=== PATIENT | male | born 1975 | race Hispanic/Latino ===

== ENCOUNTER 2019-09-19 19:28 | Emergency (ER) | payer OTHER ==
[~2019-09-19] VITALS: Ht 167.6 cm; Wt 108.9 kg
--- NOTE | 2019-09-19 20:32 | Emergency Department Note ---
History of Present Illnes History of Present Illness Chief Complaint: COVID PUI History of Present Illness This is a 44 year old male with week long h/o of cough fever, and (+) COVID-19 test. Presents to the ED for increasing cp and dyspnea. Historian: Patient Arrival Mode: [employer] Required: No Onset (how long ago): week(s) (1) Radiation: Reports non-radiation Severity: moderate Onset quality: gradual Duration (how long): week(s) (1) Timing of current episode: constant Progression: worsening Relieving factors: none Exacerbating factors: none Associated symptoms: Reports chest pain, Reports fever/chills, Reports malaise, Reports weakness Treatments prior to arrival: none Past Medical/Family History Physician Review I have reviewed the patient's past medical and family history. Any updates have been documented here. Past Medical History Recent Fever: Yes Clinical Suspicion of Infectio: Yes New/Unexplained Change in Ment: No Past Medical History: Hypertension Past Surgical History: None Social History Smoking Cessation: Never Smoker Alcohol Use: Social Any Illegal Drug Use: No Review of Systems Review of Systems Constitutional: Reports no symptoms EENTM: Reports no symptoms Cardiovascular: Reports no symptoms Respiratory: Reports other (tachypnea) Gastrointestinal: Reports no symptoms Genitourinary: Reports no symptoms Musculoskeletal: Reports no symptoms Integumentary: Reports no symptoms Neurological: Reports no symptoms Psychological: Reports no symptoms Endocrine: Reports no symptoms Hematological/Lymphatic: Reports no symptoms Physical Exam Related Data Allergies: Coded Allergies: No Known Allergies (Unverified , 09/19/19) Physical Exam CONSTITUTIONAL Constitutional: Present morbidly obese HENT HENT: Present normocephalic, Present atraumatic, Present oropharynx clear/moist, Present nose normal HENT L/R: Present left ext ear normal, Present right ext ear normal EYES Eyes: Reports PERRL, Reports conjunctivae normal NECK Neck: Present ROM normal PULMONARY Pulmonary: Present effort normal, Present breath sounds normal CARDIOVASCULAR Cardiovascular: Present regular rhythm, Present heart sounds normal, Present capillary refill normal, Present normal rate GASTROINTESTINAL Abdominal: Present soft, Present nontender, Present bowel sounds normal GENITOURINARY Genitourinary: Present exam deferred SKIN Skin: Present warm, Present dry MUSCULOSKELETAL Musculoskeletal: Present ROM normal NEUROLOGICAL Neurological: Present alert, Present oriented x 3, Present no gross motor or sensory deficits PSYCHOLOGICAL Psychological: Present mood/affect normal, Present judgement normal, Present other (ANXIOUS) Results Laboratory Lab results reviewed: Yes Imaging Imaging results reviewed: Yes Impressions [place] [id number] Patient Name: RICHARD BARRETO MR #: [id number] : 1975 Age/Sex: 44/M Req #: [id number] Adm Physician: Ordered by: NAJMA CONDE DO Report #: [id number] Location: ER Room/Bed: Procedure: [id number] DX/CHEST SINGLE (PORTABLE) Exam Date: 09/19/19 Exam Time: 2199 REPORT STATUS: Signed EXAMINATION: CHEST SINGLE (PORTABLE) INDICATION: Covid, short of breath, fever COMPARISON: None FINDINGS: TUBES and LINES: None. LUNGS: Normal lung volumes. Central bronchial wall thickening. Subtle perihilar and infrahilar haziness. PLEURA: No pleural effusion or pneumothorax. HEART AND MEDIASTINUM: The cardiomediastinal silhouette is unremarkable. BONES AND SOFT TISSUES: No acute osseous lesion. Soft tissues are unremarkable. UPPER ABDOMEN: No free air under the diaphragm. IMPRESSION: Findings of bronchitis. Subtle perihilar and infrahilar haziness can be due to atelectasis or pneumonia. Signed by: Ruben Cobb DO on 09/19/2019 11:08 PM Dictated By: RUBEN COBB DO 07 Transcribed By: YANNI on 09/19/[id number] COPY TO: NAJMA CONDE DO~ Procedures 12 Lead ECG Interpretation ECG Interpretation : ECG: ECG [employer]: Interpreted by ED physician Date: Sep 19, 2019 Time: 20:50 Rhythm: sinus rhythm Rate: normal BPM: 65 QRS axis: normal ST segments normal: Yes T waves normal: Yes Clinical Impression: non-specific ECG Assessment & Plan Medical Decision Making MDM 44 yom with known h/o of COVID-19. patient placed on continuous pulse oximetry without desaturation event. Plan to discharge to home instructions with instructions to self quarantine . Rx albuteroll Assessment & Plan Final Impression: (1) COVID-19 Depart Disposition: HOME, SELF-CARE Last Vital Signs Date Time Temp Pulse Resp B/P (MAP) Pulse Ox O2 Delivery O2 Flow Rate FiO2 09/20/19 00:03 63 24 97 09/19/19 23:19 99.4 129/74 Medications in the ED Albuterol INH RQ4H PRN INH SHORTNESS OF BREATH; Start 09/19/19 at 20:45; Stop 09/20/19 at 00:17; Status DC Prednisone 60 mg ONCE STAT PO Last administered on 09/19/19at 21:26; Admin Dose 60 MG; Start 09/19/19 at 20:35; Stop 09/19/19 at 20:56; Status DC Sodium Chloride 1,000 ml @ 0 mls/hr Q0M STAT IV Last administered on 09/19/19at 21:26; Admin Dose 999 MLS/HR; Start 09/19/19 at 20:35; Stop 09/19/19 at 20:39; Status DC Acetaminophen 975 mg STK-MED ONCE .ROUTE ; Start 09/19/19 at 20:59; Stop 09/19/19 at 20:54; Status DC Acetaminophen 975 mg ONCE ONCE PO Last administered on 09/19/19at 21:20; Admin Dose 975 MG; Start 09/19/19 at 21:30; Stop 09/19/19 at 21:34; Status DC NAJMA CONDE DO Sep 19, 2019 20:32
[2019-09-19] MEDS ORDERED: SODIUM CHLORIDE 0.9% 1000ML 1,000 ML IV STA (20:35)
[2019-09-19] MEDS ORDERED: PREDNISONE 20 MG TAB PO STA (20:35)
[2019-09-19] MEDS ORDERED: ALBUTEROL SULFATE HFA 8GM INHALATION AEROSOL INH PRN (20:45)
[2019-09-19] MEDS ORDERED: ACETAMINOPHEN 325 MG TAB ONE (20:59)
[2019-09-19] MEDS ORDERED: ACETAMINOPHEN 325 MG TAB PO ONE (21:30)
[2019-09-19 21:33] LABS: BASOPHILS % 0.2 % (0.0-1.0); EOSINOPHILS % 0.1 % (0.0-6.0); HEMATOCRIT 45.4 % (38.2-49.6); HEMOGLOBIN 15.1 g/dL (14.0-18.0); LYMPHOCYTES # (AUTO) 1.6 (1.0-3.2); LYMPHOCYTES % 18.9 % (18.0-39.1); MEAN CORPUSCULAR HEMOGLOBIN 28.7 pg (28-32); MEAN CORPUSCULAR HGB CONC 33.3 g/dL (31-35); MEAN CORPUSCULAR VOLUME 86.1 fL (81-99); MONOCYTES # (AUTO) 0.6 (0.2-0.8); MONOCYTES % 7.5 % (4.4-11.3); NEUTROPHILS % 73.1 % (38.7-80.0); PLATELET COUNT 244 x10e3/uL (140-360); RED BLOOD COUNT 5.27 x10e6/uL (4.3-5.7); RED CELL DISTRIBUTION WIDTH 12.5 % (11.7-14.4)
[2019-09-19 21:49] LABS: ALANINE AMINOTRANSFERASE 31 IU/L (0-55); ALBUMIN 3.9 g/dL (3.5-5.0); ALKALINE PHOSPHATASE 33 IU/L (40-150); ANION GAP 15.8 mmol/L (8-16); BLOOD UREA NITROGEN 10 mg/dL (7-26); BUN/CREATININE RATIO 9 (6-25); CALCIUM 9.1 mg/dL (8.4-10.2); CARBON DIOXIDE 23 mmol/L (22-29); CHLORIDE 105 mmol/L (98-107); EST GLOMERULAR FILTRATION RATE > 60 ML/MIN (60-); GLUCOSE 105 mg/dL (74-118); POTASSIUM 3.8 mmol/L (3.5-5.1); SODIUM 140 mmol/L (136-145)
--- NOTE | 2019-09-19 23:12 | Diagnostic Imaging Report ---
EXAMINATION: CHEST SINGLE (PORTABLE) INDICATION: Covid, short of breath, fever COMPARISON: None FINDINGS: TUBES and LINES: None. LUNGS: Normal lung volumes. Central bronchial wall thickening. Subtle perihilar and infrahilar haziness. PLEURA: No pleural effusion or pneumothorax. HEART AND MEDIASTINUM: The cardiomediastinal silhouette is unremarkable. BONES AND SOFT TISSUES: No acute osseous lesion. Soft tissues are unremarkable. UPPER ABDOMEN: No free air under the diaphragm. IMPRESSION: Findings of bronchitis. Subtle perihilar and infrahilar haziness can be due to atelectasis or pneumonia. Signed by: Ruben Cobb DO on 09/19/2019 11:08 PM
[2019-09-20 00:03] VITALS: BP 128/75
== END 2019-09-20 00:16 | disposition home or self-care (01) ==
LOC: ER 19:28
DX: R50.9 Fever, unspecified (principal); R05 Cough; U07.1 COVID-19
CPT/HCPCS: 36415; 71045; 80053; 85025; 87635; 99284; J7030; J7512; 93005